=== PATIENT | female | born 1945 | race Caucasian/White ===

== ENCOUNTER 2021-07-22 09:26 | Day surgery (SDC) | payer MEDICARE, OTHER, SELFPAY ==
[2021-07-22] VITALS (7 sets, daily range): BP systolic 113–129; BP diastolic 66–78; PULSE 63–69; RESP 17–20; TEMP 36.1–36.8; O2SAT 93–96
--- NOTE | ~2021-07-22 | FL_ITS ---
EXAMINATION: XR LUMBAR PUNCTURE CLINICAL INFORMATION: Leukoencephalopathy. COMPARISON: None TECHNIQUE: Following explaining fluoroscopy-guided lumbar puncture procedure, benefits and risks, a written consent was obtained. Patient was placed prone on fluoroscopy table and low back area was cleaned and draped in the usual sterile manner. 1% lidocaine was injected at puncture site overlying the L4-L5 disc level. A 22-gauge spinal needle was advanced from the skin intrathecally at the L4-L5 disc level. After observing CSF return, the patient was placed in left lateral decubitus view and opening CSF pressure was obtained. Subsequently, CSF fluid was collected in 4 test tubes. Stylet was reintroduced and needle withdrawn. Complete hemostasis was achieved at puncture site. Patient tolerated the procedure extremely well. FINDINGS: On several images obtained under fluoroscopy, the needle is positioned posterior to the L4-L5 disc level. There is mild loss of the L3-L4, L4-L5 and L5-S1 disc levels. No lytic or sclerotic process seen. There is mild bilateral L5-S1 facet joint arthropathy. FLUOROSCOPY TIME: 0.7 minutes DOSE AREA PRODUCT: 5.104 uGy-m2 (microgray-meter squared) FL/FL guided lumbar puncture LP IMPRESSION: Successful ultrasound-guided L4-L5 lumbar puncture performed without immediate complications.
[2021-07-22 10:04] LABS: MANUAL DIFF FLAG NO
[2021-07-22 10:07] LABS: Basophils Percent Auto 0.3 % (0-2); Eosinophils Absolute Auto 0.5 X10*3/uL (0.0-0.4); Eosinophils Percent Auto 4.8 % (0-4); Hematocrit 41.9 % (37.0-47.0); Hemoglobin 13.6 g/dl (12.0-16.0); Imm Gran Abs Auto 0.04 X10*3/uL (0.00-0.03); Imm Gran Pct Auto 0.4 % (0.0-0.4); Lymphocytes Absolute Auto 1.7 X10*3/uL (1.2-4.9); Lymphocytes Percent Auto 16.6 % (20-40); Mean Corpuscular HGB Conc 32.5 g/dl (31.0-35.0); Mean Corpuscular Volume 92.3 fL (80.0-98.0); Mean Platelet Volume 9.6 fL (9.4-12.3); Monocytes Absolute Auto 0.9 X10*3/uL (0.1-1.2); Monocytes Percent Auto 9.1 % (2-11); Neutrophils Percent Auto 68.8 % (45-73); Platelet Count 235 X10*3/uL (160-400); Red Blood Count 4.54 X10*6/uL (4.20-5.50); Red Cell Distribution Width 12.9 % (11.0-16.0); White Blood Count 10.1 X10*3/uL (4.8-10.8)
[2021-07-22 10:18] LABS: INTERNATIONAL NORM RATIO 0.9 (0.9-1.1); Prothrombin Time 10.6 SEC (9.9-13.0)
[2021-07-22 10:21] LABS: Partial Thromboplastin Time 32.8 SEC (24.1-38.0)
[2021-07-22 12:56] LABS: CSF Appearance Clear, Colorless; CSF Tube # 2
[2021-07-22 13:00] LABS: Appearance CSF CLEAR; CSF Tube # 4; Color CSF COLORLESS; Neutrophils CSF 50 %; Red Blood Cell CSF 13 MM*3; White Blood Cell CSF 1 MM*3
[2021-07-22 13:01] LABS: CSF Monos 50 %
[2021-07-22 13:19] LABS: Glucose CSF 51 mg/dL; Total Protein CSF 39.5 mg/dL (15-45)
[2021-07-22 13:55] LABS: Oligoclonal Serum Yes
[2021-07-25 15:32] LABS: Albumin 3.8 g/dL (3.2-4.6); Albumin, CSF 25.2 mg/dL (8.0-42.0); IgG 486 mg/dL (600-1540); IgG Synthesis Rate -1.5 mg/24 h (-9.9-3.3); IgG, CSF 1.5 mg/dL (0.8-7.7)
== END 2021-07-22 15:06 | disposition home or self-care (01) ==
PROVIDERS: Radiology Diagnostic Radiology; Visit Provider Psychiatry & Neurology Neurology
PROC: 009U3ZZ Drainage of Spinal Canal, Percutaneous Approach (ICD-10-PCS; CPT 62270; principal; 2021-07-22 11:00)
DX: G93.49 Other encephalopathy (principal); F29 Unspecified psychosis not due to a substance or known physiological condition; F41.8 Other specified anxiety disorders; G47.00 Insomnia, unspecified; K21.9 Gastro-esophageal reflux disease without esophagitis; Z79.899 Other long term (current) drug therapy; I67.89 Other cerebrovascular disease
CPT/HCPCS: 36415; 62328; 82042; 82945; 83916; 84157; 85025; 85610; 85730; 87015; 87070; 87205; 89051

== ENCOUNTER 2023-04-16 09:29 | Outpatient (AMB) | payer MEDICARE, SELFPAY ==
--- NOTE | 2023-04-16 09:34 | A.OFFVIS_ITS ---
Intake Vital Signs 04/16/23 09:41 Height 5 ft 3 in Weight 108 lb 4 oz BMI 19.2 BP 102/62 Blood Pressure Location Rt brachial Position Sitting Pulse 64 Pulse Source Pulse Oximeter Pulse Oximetry (%) 98 Oxygen Delivery Method Room Air Intake Visit Reasons: Confusion Intake Note: NPV confusion Customer Service Representative Teacher Required: No Allergies prednisone Allergy (Mild, Verified 04/16/23 09:35) Agitated Sulfa (Sulfonamide Antibiotics) Allergy (Unknown, Verified 04/16/23 09:35) Unknown trazodone Allergy (Unknown, Verified 04/16/23 09:35) Unknown zolpidem [From Ambien] Allergy (Unknown, Verified 04/16/23 09:35) Unknown Medication List - Last Reconciled 04/16/23 by Adriana Arora MD acetaminophen-codeine 300-30 mg 1 tab PO TID PRN alprazolam 0.5 mg PO DAILY PRN bupropion HCl 100 mg PO BID buspirone 15 mg PO TID fluoxetine 60 mg PO QAM metoprolol tartrate 25 mg PO BID omeprazole 20 mg PO DAILY quetiapine 50 mg PO BEDTIME ropinirole 0.25 mg PO BID rosuvastatin 20 mg PO DAILY HPI HPI Comments History of Present Illness Details 77y/o female comes for opinion regarding cognitive disorder. 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 she has a long h/o anxiety and depression , sees Dr. Churchill and is fairly controlled. The patient started having hallucinations about 2 years. she had both visual and auditory hallucinations, in the middle of the night- 12am-4 am. she sleeps around 9-10pm and woke up at around midnight with vivid dreams and she sees people. she describes a person Earl -medication manager that works arund the house , other 2 people.she interacts with them . Once she thought someone was breaking in so she called the reflesher. it is always the same person. SHe is doing good during daytime .No hallucinations or paranoid thoughts. she was seen by her psychiatrist who adjusted medications- decreased wellbutrin 100mg she has occasional memory issues but is independent in all her ADLs.she lives alone and her daughter lives 6 min away. 18 months ago she called the reflesher - as she heard someone breaking in the house. PFSH Medical History (Updated 04/16/23 @ 10:32 by Adriana Arora MD) Asthma Chronic migraine with aura Diverticulosis Fibromyalgia GERD (gastroesophageal reflux disease) HTN (hypertension) Hyperlipidemia Insomnia Lumbar spinal stenosis Osteoarthritis Osteoporosis Parasomnia Restless legs syndrome (RLS) Surgical History H/O knee surgery H/O: hysterectomy Social History Alcohol intake: current Patient Tobacco Use Status: Former Tobacco user Review of Systems Const Reports no additional complaints and Reports difficulty sleeping ENT Reports hearing loss and Reports neck pain Musc Reports back pain, Reports arthralgias and Reports neck pain Neuro Reports behavioral changes and Reports memory loss Psych Reports anxiety, Reports behavioral changes, Reports depression and Reports memory loss Physical Exam Vital Signs: Last Vital Signs Pulse 64 04/16/23 09:41 BP 102/62 04/16/23 09:41 Pulse Ox 98 04/16/23 09:41 Oxygen Delivery Method Room Air 04/16/23 09:41 BMI result Body Mass Index 19.2 Const General: cooperative, healthy appearing, comfortable and no acute distress Nutritional Appearance: average body habitus Orientation/consciousness: patient oriented x3 Eyes Pupils: Equal, round and reactive pupils present Neuro General: patient oriented x3, tone normal, moves all extremities and no focal motor deficits Cranial nerves: Yes Facial sensation intact/muscles of mastication intact, Yes Equal, round and reactive pupils present, Yes Bilaterally intact EOM present, Yes Nystagmus not present, Yes Normal facial strength present and Yes Midline tongue present Cognition (Neuro): normal cognition Gait exam (Neuro): Antalgic gait present Motor exam (neuro): 5/5 motor strength present throughout and Normal motor muscle tone present throughout Deep tendon reflexes (DTR's): Right triceps reflex intensity grade: 2+, Left triceps reflex intensity grade: 2+, Rt Biceps (C5, C6): 2+, Left biceps reflex intensity grade: 2+, Right brachioradialis reflex intensity grade: 2+, Left brachioradialis reflex intensity grade: 2+, Right patellar reflex intensity grade: 2+ and Left patellar reflex intensity grade: 2+ Coordination: [id number] test normal Psych Appearance: grossly normal Orientation What is the (year) (season) (date) (day) (month)?: year, date, day and month Where are we (state) (county) (town or city) (hospital) (floor)?: state, county, town or city, hospital/clinic and floor Registration Name of 3 unrelated objects clearly and slowly, then ask patient to repeat all 3 of them. (1st repeat determines score. Make sure they can repeat all three): object 1, object 2 and object 3 Attention & Calculation (CHOOSE ONE) Spell WORLD backwards (DLROW): 5 letters Recall Ask patient to repeat the 3 items from question #3.: object 1 and object 2 Language Show patient a wristwatch & ask what it is. Repeat for pencil.: watch and pencil Ask the patient to repeat the phrase 'No ifs, ands, or buts' after you.: correct Ask the patient to 'take a piece of paper with their right hand' 'fold paper in half' 'place paper on floor': take paper in right hand, fold paper in half and place paper on floor Print the sentence 'CLOSE YOUR EYES' on a piece. If patient actually closes eyes then score.: followed written direction Give patient a blank piece of paper & ask to write a sentence. Score if it contains a noun & verb.: sentence contains subject and verb Score Score: 27 Assessment & Plan Assessment & Plan (1) Parasomnia: Comment: vivid dreams and confusional arousals Code(s): G47.50 - Parasomnia, unspecified (2) Insomnia: Comment: psychophysiological , mood related Code(s): G47.00 - Insomnia, unspecified (3) Confusion: Code(s): R41.0 - Disorientation, unspecified Plan I will schedule her for in lab sleep study to evaluate her abnormal behavior in sleep. She may benefit from a small dose of clonazepam 0.5mg qhs - I will forward this suggestion to her psychiatric nurse practitioner Mr.Erich Churchill. MRI report from [place] for review Clinical history and exam is not suggestive of lewy body disease. Coding Level of Care Code New Pt Level 4 (32801) Diagnoses Parasomnia G47.50 Insomnia G47.00 Confusion R41.0
[2023-04-16 09:41] VITALS: BP 102/62; PULSE 64; O2SAT 98; BMI 19.2
== END 2023-04-16 10:24 | disposition home or self-care (01) ==
PROVIDERS: Visit Provider Psychiatry & Neurology Neurology
DX: G47.50 Parasomnia, unspecified (principal); G47.00 Insomnia, unspecified; R41.0 Disorientation, unspecified
CPT/HCPCS: 99204

== ENCOUNTER → 2023-04-16 09:29 | Outpatient (BNVA) | payer MEDICARE, SELFPAY | PROVIDERS: Visit Provider Psychiatry & Neurology Neurology | DX: G47.50 Parasomnia, unspecified (principal); G47.00 Insomnia, unspecified; R41.0 Disorientation, unspecified | CPT/HCPCS: 99202 ==

== ENCOUNTER 2023-08-18 13:45 | Outpatient (AMB) | payer MEDICARE, SELFPAY ==
[2023-08-18 13:54] VITALS: BP 128/76; PULSE 66; O2SAT 96; BMI 19.4
--- NOTE | 2023-08-18 13:54 | MHC.OFFVIS ---
Intake Vital Signs 08/18/23 13:54 Height 5 ft 3 in Weight 109 lb 6 oz BMI 19.4 BP 128/76 Blood Pressure Location Rt brachial Position Sitting Pulse 66 Pulse Source Pulse Oximeter Pulse Oximetry (%) 96 Oxygen Delivery Method Room Air Intake Visit Reasons: Parasomnia Allergies prednisone Allergy (Mild, Verified 08/18/23 13:57) Agitated Sulfa (Sulfonamide Antibiotics) Allergy (Unknown, Verified 08/18/23 13:57) Unknown trazodone Allergy (Unknown, Verified 08/18/23 13:57) Unknown zolpidem [From Ambien] Allergy (Unknown, Verified 08/18/23 13:57) Unknown Medication List - Last Reconciled 08/18/23 by Adriana Arora MD acetaminophen-codeine 300-30 mg 1 tab PO TID PRN alprazolam 0.5 mg PO DAILY PRN bupropion HCl 100 mg PO BID buspirone 15 mg PO TID fluoxetine 60 mg PO QAM metoprolol tartrate 25 mg PO BID omeprazole 20 mg PO DAILY quetiapine 50 mg PO BEDTIME ropinirole 0.25 mg PO BID rosuvastatin 20 mg PO DAILY HPI HPI Comments History of Present Illness Details 78y/o female comes for follow up cognitive disorder.she did not trial clonazepam . But her daughter realized that she was taking her quetiapine at 5 pm and sleeps at 8 pm . she wakes at 3 am . No change from last visit except for increase in auditory hallucinations. she has a long h/o anxiety and depression , sees Dr. Churchill and is fairly controlled. The patient started having hallucinations about 2 years. she had both visual and auditory hallucinations, in the middle of the night- 12am-4 am. she sleeps around 9-10pm and woke up at around midnight with vivid dreams and she sees people. she describes a person Earl -repair department manager that works around the house , other 2 people.she interacts with them . Once she thought someone was breaking in so she called the open hearth worker. it is always the same person. SHe is doing good during daytime . she was seen by her psychiatrist who adjusted medications- decreased wellbutrin 100mg she has occasional memory issues but is independent in all her ADLs.she lives alone and her daughter lives 6 min away. 18 months ago she called the open hearth worker - as she heard someone breaking in the house. [facility] Medical History Parasomnia Diverticulosis Asthma Osteoporosis GERD (gastroesophageal reflux disease) Lumbar spinal stenosis Chronic migraine with aura Hyperlipidemia HTN (hypertension) Restless legs syndrome (RLS) Insomnia Fibromyalgia Osteoarthritis Surgical History H/O: hysterectomy H/O knee surgery Social History Alcohol intake: current Alcohol intake frequency: a few times a week Patient Tobacco Use Status: Former Tobacco user Physical Exam Vital Signs: Last Vital Signs Pulse 66 08/18/23 13:54 BP 128/76 08/18/23 13:54 Pulse Ox 96 08/18/23 13:54 Oxygen Delivery Method Room Air 08/18/23 13:54 BMI result Body Mass Index 19.4 Const General: cooperative, healthy appearing, comfortable and no acute distress Nutritional Appearance: average body habitus Orientation/consciousness: patient oriented x3 Eyes Pupils: Equal, round and reactive pupils present Neuro General: patient oriented x3, tone normal, moves all extremities and no focal motor deficits Cranial nerves: Yes Facial sensation intact/muscles of mastication intact, Yes Equal, round and reactive pupils present, Yes Bilaterally intact EOM present, Yes Nystagmus not present, Yes Normal facial strength present and Yes Midline tongue present Cognition (Neuro): normal cognition Gait exam (Neuro): Antalgic gait present Motor exam (neuro): 5/5 motor strength present throughout and Normal motor muscle tone present throughout Coordination: [id number] test normal Psych Appearance: grossly normal Assessment & Plan Assessment & Plan (1) Parasomnia: Comment: vivid dreams and confusional arousals Code(s): G47.50 - Parasomnia, unspecified (2) Insomnia: Comment: psychophysiological , mood related Code(s): G47.00 - Insomnia, unspecified (3) Confusion: Code(s): R41.0 - Disorientation, unspecified Plan I will schedule her for in lab sleep study to evaluate her abnormal behavior in sleep. She may benefit from a small dose of clonazepam 0.5mg qhs - I will forward this suggestion to her psychiatric mental health nurse Mr.Jeffrey Churchill. F/U with Psyhciatry Clinical history and exam is not suggestive of lewy body disease. Orders: Orders RT PSG in-lab sleep study Today G47.50 - Parasomnia, unspecified Coding Level of Care Code Est Pt Level 4 (27639) Diagnoses Parasomnia G47.50 Insomnia G47.00 Confusion R41.0
== END 2023-08-18 14:14 | disposition home or self-care (01) ==
PROVIDERS: Visit Provider Psychiatry & Neurology Neurology
DX: G47.50 Parasomnia, unspecified (principal); G47.00 Insomnia, unspecified; R41.0 Disorientation, unspecified
CPT/HCPCS: 99214

== ENCOUNTER → 2023-08-18 13:45 | Outpatient (BNVA) | payer MEDICARE, SELFPAY | PROVIDERS: Visit Provider Psychiatry & Neurology Neurology | DX: G47.50 Parasomnia, unspecified (principal); G47.00 Insomnia, unspecified; R41.0 Disorientation, unspecified | CPT/HCPCS: 99212 ==

== ENCOUNTER 2024-02-16 13:50 | Outpatient (AMB) | payer MEDICARE, SELFPAY ==
--- NOTE | 2024-02-16 13:57 | A.OFFVIS_ITS ---
Vital Signs 02/16/24 13:58 Height 5 ft 3 in Weight 113 lb BMI 20.0 BP 108/70 Blood Pressure Location Rt brachial Position Sitting Respiration 16 Pulse 66 Pulse Source Pulse Oximeter Pulse Oximetry (%) 96 Oxygen Delivery Method Room Air Intake Visit Reasons: 6 mnts f/u appt - Conf w/dtr Intake Note: Pt presents for for 6 month follow up for cognitive disorder. Global Chief Creative Officer Required: No Allergies prednisone Allergy (Mild, Verified 02/16/24 13:57) Agitated Sulfa (Sulfonamide Antibiotics) Allergy (Unknown, Verified 02/16/24 13:57) Unknown trazodone Allergy (Unknown, Verified 02/16/24 13:57) Unknown zolpidem [From Ambien] Allergy (Unknown, Verified 02/16/24 13:57) Unknown Medication List - Last Reconciled 02/16/24 by Adriana Arora MD acetaminophen-codeine 300-30 mg 1 tab PO TID PRN alprazolam 0.5 mg PO DAILY PRN bupropion HCl SR 75 mg PO BID buspirone 15 mg PO TID clonazepam 0.5 mg PO BEDTIME fluoxetine 60 mg PO QAM metoprolol tartrate 25 mg PO BID omeprazole 20 mg PO DAILY quetiapine 100 mg PO BEDTIME ropinirole 0.25 mg PO BID rosuvastatin 20 mg PO DAILY HPI Comments Details: 78y/o female comes for follow up cognitive disorder.she did not trial clonazepam . she is taking her quetiapine at 8pm now and sleeping through the night. she still has some abnormal sleep behavior. No change from last visit except for increase in auditory hallucinations. she has a long h/o anxiety and depression , sees Dr. Churchill and is fairly controlled. The patient started having hallucinations about 2 years. she had both visual and auditory hallucinations, in the middle of the night- 12am-4 am. she sleeps around 9-10pm and woke up at around midnight with vivid dreams and she sees people. she describes a person Earl -winderman that works around the house , other 2 people.she interacts with them . Once she thought someone was breaking in so she called the gasoline engine inspector. it is always the same person. SHe is doing good during daytime . she was seen by her psychiatrist who adjusted medications- decreased wellbutrin 100mg she has occasional memory issues but is independent in all her ADLs.she lives alone and her daughter lives 6 min away. 18 months ago she called the gasoline engine inspector - as she heard someone breaking in the house. [facility] Medical History Parasomnia Diverticulosis Asthma Osteoporosis GERD (gastroesophageal reflux disease) Lumbar spinal stenosis Chronic migraine with aura Hyperlipidemia HTN (hypertension) Restless legs syndrome (RLS) Insomnia Fibromyalgia Osteoarthritis Surgical History H/O: hysterectomy H/O knee surgery Social History Alcohol intake: current Alcohol intake frequency: a few times a week Patient Tobacco Use Status: Former Tobacco user Physical Exam Vital Signs: Last Vital Signs Pulse 66 02/16/24 13:58 Resp 16 02/16/24 13:58 BP 108/70 02/16/24 13:58 Pulse Ox 96 02/16/24 13:58 Oxygen Delivery Method Room Air 02/16/24 13:58 BMI result Body Mass Index 20.0 Const General: cooperative, healthy appearing, comfortable and no acute distress Nutritional Appearance: average body habitus Orientation/consciousness: patient oriented x3 Eyes Pupils: Equal, round and reactive pupils present Neuro General: patient oriented x3, tone normal, moves all extremities and no focal motor deficits Cranial nerves: Yes Facial sensation intact/muscles of mastication intact, Yes Equal, round and reactive pupils present, Yes Bilaterally intact EOM present, Yes Nystagmus not present, Yes Normal facial strength present and Yes Midline tongue present Cognition (Neuro): normal cognition Gait exam (Neuro): Antalgic gait present Motor exam (neuro): 5/5 motor strength present throughout and Normal motor muscle tone present throughout Coordination: [id number] test normal Psych Appearance: grossly normal Assessment & Plan Assessment & Plan (1) Parasomnia: Comment: vivid dreams and confusional arousals Code(s): G47.50 - Parasomnia, unspecified Category: Medical (2) Insomnia: Comment: psychophysiological , mood related Code(s): G47.00 - Insomnia, unspecified Category: Medical (3) Confusion: Code(s): R41.0 - Disorientation, unspecified Plan In lab sleep study to evaluate her abnormal behavior in sleep. I will trial her on clonazepam 0.5mg qhs - F/U with Psyhciatry Clinical history and exam is not suggestive of lewy body disease. Medications: New clonazepam administer 30 minutes before bedtime 0.5 mg PO BEDTIME 30 tabs 2RF Coding Level of Care Code Est Pt Level 4 (39345) Diagnoses Parasomnia G47.50 Insomnia G47.00 Confusion R41.0
[2024-02-16 13:58] VITALS: BP 108/70; PULSE 66; RESP 16; O2SAT 96
== END 2024-02-16 14:22 | disposition home or self-care (01) ==
PROVIDERS: Visit Provider Psychiatry & Neurology Neurology
DX: G47.50 Parasomnia, unspecified (principal); G47.00 Insomnia, unspecified; R41.0 Disorientation, unspecified
CPT/HCPCS: 99214

== ENCOUNTER → 2024-02-16 13:50 | Outpatient (BNVA) | payer MEDICARE, SELFPAY | PROVIDERS: Visit Provider Psychiatry & Neurology Neurology | DX: G47.50 Parasomnia, unspecified (principal); R41.0 Disorientation, unspecified | CPT/HCPCS: 99212 ==